=== PATIENT | female | born 1995 | race African-American/Black ===

== ENCOUNTER 2017-11-28 18:06 | Emergency (ER) | payer OTHER ==
[~2017-11-28] VITALS: Ht 172.7 cm; Wt 105.0 kg
[2017-11-28 18:06] VITALS: TEMP 36.9; Ht 172.7 cm; Wt 105.0 kg
[2017-11-28 18:08] VITALS: O2SAT 98
[2017-11-28] MEDS ORDERED: ACETAMINOPHEN 500 MG TAB PO STA (18:33)
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
[2017-11-28 20:26] VITALS: BP 182/112; PULSE 82; O2SAT 98
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
== END 2017-11-28 20:29 | disposition home or self-care (01) ==
LOC: EDBD 18:06 → C.EDD 18:11
DX: S80.02XA Contusion of left knee, initial encounter (principal); S70.12XA Contusion of left thigh, initial encounter; V09.29XA Pedestrian injured in traffic accident involving other motor vehicles, initial encounter; Y92.410 Unspecified street and highway as the place of occurrence of the external cause; R03.0 Elevated blood-pressure reading, without diagnosis of hypertension